=== PATIENT | male | born 1975 | race Caucasian/White ===

== ENCOUNTER 2017-12-19 10:57 | Emergency (ER) | payer BC ==
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
--- NOTE | 2017-12-19 12:37 | XR ---
EXAMINATION TYPE: XR hand complete RT DATE OF EXAM: 12/19/2017 CLINICAL HISTORY: Pain after injury yesterday worse over second finger TECHNIQUE: Frontal, lateral and oblique images of the right hand are obtained. COMPARISON: None. FINDINGS: There is no acute fracture/dislocation evident in the right hand. The joint spaces in the right hand appear within normal limits. The overlying soft tissue appears unremarkable. IMPRESSION: There is no acute fracture or dislocation in the right hand.
[2017-12-19] MEDS ORDERED: DIPH,PERTUS(ACELL)TETVAC-LF 0.5 ML VIAL IM ONE (13:20)
[2017-12-19 13:47] VITALS: BP 111/73; PULSE 60; RESP 16; TEMP 98.4
== END 2017-12-19 13:48 | disposition home or self-care (01) ==
LOC: EC 10:57
DX: S61.210A Laceration without foreign body of right index finger without damage to nail, initial encounter (principal); K21.9 Gastro-esophageal reflux disease without esophagitis; Z23 Encounter for immunization; Z88.0 Allergy status to penicillin; Z79.899 Other long term (current) drug therapy; W31.89XA Contact with other specified machinery, initial encounter; Y92.009 Unspecified place in unspecified non-institutional (private) residence as the place of occurrence of the external cause
CPT/HCPCS: 90471; 90715; 99283